=== PATIENT | male | born 1970 | race Hispanic/Latino ===

== ENCOUNTER 2018-10-31 13:37 | Outpatient (CLI) | payer OTHER ==
--- NOTE | 2018-10-31 16:23 | RAD ---
RADIOGRAPH THORACIC SPINE THREE VIEWS: 10/31/2018 HISTORY: A 48-year-old male with M54.6 and M54.5. Low back pain and pain in the thoracic spine. COMPARISON: None available. FINDINGS: There are bilateral pedicle screws with vertical interlocking rods, from the mid to lower thoracic sp ine, at what is probably T12, T11, T10, T9, and T8. On one of the two lateral views, there is a fátima re, approximately 75% gibbus angulation at T12-L1. The T12 vertebral body is poorly visualized, but it is probably compressed. The rest of the thoracic vertebral body heights are maintained. No scoli osis. IMPRESSION: 1. Severe gibbus at the thoracolumbar junction. 2. Pedicle screws at five consecutive levels in the lower thoracic spine. 3. Probable compression fracture deformity of the lowest level to have pedicle screws. This is inc ompletely and poorly imaged. POS: [facility]
== END 2018-10-31 13:38 | disposition home or self-care (01) ==
LOC: TBSIIMAG 13:37
PROVIDERS: ATTEND Neurological Surgery
DX: M54.5 Low back pain (principal); M54.6 Pain in thoracic spine; M43.8X5 Other specified deforming dorsopathies, thoracolumbar region
CPT/HCPCS: 72072

== ENCOUNTER 2018-12-07 07:48 | Day surgery (SDC) | payer OTHER ==
[2018-12-06 08:57] VITALS: BMI 25.7
--- NOTE | 2018-12-07 10:06 | RAD ---
Myelogram of cervical, thoracic, and lumbar spine CLINICAL HISTORY: Kyphosis, pain, history of posttraumatic paralysis PROCEDURE: Informed consent was obtained. [facility] imaging was performed. Patient was placed in a prone position and the skin of the low back was prepped and draped in a standard sterile fashion. Topical anesthesia was achieved with buffered 1% lidocaine. 22-gauge spinal needle was then advanced uneventf ully into the thecal sac from a posterior para midline approach at the left L4-5 level. 9 cc of radiopaque contrast was instilled under low pressure into the thecal sac, upon return of clear colorl ess CSF the needle hub. Imaging was stored for documentation. Needle was removed. Patient tolerated the procedure well, without complication evident. Patient was then transferred to CT to undergo subsequent CT myelogram imaging. Reference separate meek andrea(s) for additional details. FINDINGS: Intraoperative imaging reveals a needle overlying the lumbar spinal canal, with subsequent instillation of radiopaque contrast within the thecal sac. Fluoroscopy data: 0.2 minutes, 13.6 mcg/sq m IMPRESSION: Technically successful myelograms, as above.
[2018-12-07] MEDS ORDERED: Iopamidol-M 300 61% 15 ML VIAL ONE (10:39)
--- NOTE | 2018-12-07 11:20 | CT ---
CT LUMBAR MYELOGRAM WITH CONTRAST AND 3D VOLUME RENDERING CT LUMBAR SPINE WITH CONTRAST: CLINICAL HISTORY: Spinal cord injury, pain. FINDINGS: There is intrathecal contrast opacification throughout the lumbar spine from the L2 level through the sacral canal. At the site of posttraumatic deformity, L1-2, there is complete obliteration of the vertebral canal on the basis of retropulsed bone and surrounding paraspinous soft tissue density. The re is marked sclerosis of the posttraumatic L1 and L2 vertebral bodies. Mild superior, central height loss of L1 is present. There are multilevel degenerative appearing cysts of the L1 and L2 endp lates. There is mild retrolisthesis of L1 upon L2. Partially imaged hardware of the lower thoracic spine is demonstrated from multilevel posterior thoracic spinal fixation, incompletely evaluated on t he basis of this exam. There is obliteration of the thecal sac at the L1-2 level due to above described posttraumatic spinal deformity, retrolisthesis, and prominent epidural soft tissue density with interspersed calcific densities which may, at least in part be due to posttraumatic disc herniation, likely chronic given t he interspersed calcifications in the prominent adjacent bone deformity from remote trauma. Finding is difficult to reliably assess, otherwise on the basis of this exam. Note is made that there is lumbarization of S1. This places the iliolumbar ligaments appropriately at the anatomic L5 level. L1-2: Obliteration of the vertebral canal, related to posttraumatic deformity, as above. L2-3: There is mild effacement of the ventral thecal sac due to disc osteophyte. Mild left foraminal narrowing. No significant right foraminal narrowing. L3-4: Mild effacement of ventral thecal sac due to disc osteophyte complex. There is mild bilateral n eural foraminal narrowing. L4-5: Mild effacement of ventral thecal sac due to disc osteophyte. No high-grade foraminal stenosis. L5-S1: No significant compromise of central canal or neural foramina S1-2: No significant central canal or neural foraminal stenosis. IMPRESSION: Obliteration of the thecal sac at the posttraumatic T12-L1 level due to posttraumatic retropulsion, k yphosis, and prominent anterior epidural soft tissue with interspersed calcifications as discussed above. This does significantly impede cephalad migration of contrast beyond the confines of the lumba r spine thecal sac, despite delayed imaging of approximately 1 hour, with the patient in a persistent Trendelenburg position. Transcribed Date/Time: 12/07/2018 11:28 AM
--- NOTE | 2018-12-07 11:24 | CT ---
CT Cervical Spine W Con CT cervical spine myelogram with contrast 3-D volume rendering Indication: Spinal cord injury COMPARISON: None FINDINGS: Examination is performed status post myelogram. Please reference the separately dictated thoracic and lumbar spine segment reports for further details. Despite persistent, Trendelenburg positioning, with delayed imaging performed after one hour of posit ioning, due to patient's posttraumatic deformity and occlusion of the vertebral canal near the level of the thoracolumbar junction, there is inadequate contrast opacification of the cervical spine thecal sac for the purposes of myelographic evaluation. The osseous structures of the cervical spine reveal maintained alignment. There is no compression fracture. Craniocervical junction is intac t. There is mild multilevel, bilateral facet osteoarthritis and minimal multilevel endplate degenerative change, although the disc space heights of the cervical spine are relatively well preser blanca. Contents of the vertebral canal are not reliably assessed. IMPRESSION: 1. No high-grade osseous compromise of the cervical spine vertebral canal or neural foramina. 2. No evidence of fracture or malalignment. 3. Multilevel mild degenerative change. 4. Incomplete contrast opacification of thecal sac of cervical spine due to occlusion of the vertebr al canal near the thoracolumbar junction as discussed above. Transcribed Date/Time: 12/07/2018 11:30 AM
--- NOTE | 2018-12-07 11:36 | CT ---
CT THORACIC SPINE MYELOGRAM CT THORACIC SPINE WITH CONTRAST AND 3D REFORMATTED IMAGING: CLINICAL HISTORY: Spinal cord injury, pain FINDINGS: There is postoperative multilevel metallic fixation spanning the T9-L1 level. There is mild superior endplate compression deformity of T10 and T11. Marked sclerosis, and posttraumatic kyphotic deformity with endplate irregularities of L1 and L2 are present, incompletely visualized, described o n the concurrent lumbar spine CT myelogram report. There is bilateral pedicle screw placement of T9-L1, without evidence of perihardware lucency identif ied. The left T9 pedicle screw does reside external to the vertebral body, residing within the left paraspinous soft tissues. Scant radiopaque contrast occupies the thecal sac of the thoracic spine due to severe impedance of fl ow of intrathecal contrast beyond the site of a posttraumatic occlusion at the thoracolumbar junction, despite one hour of Trendelenburg positioning with subsequent delayed imaging. This does li joaquin assessment of the vertebral canal contents, as a result, and there is marked limitation to visibility at the level of the metallic fusion sites due to prominent streak artifact. There is no significant malalignment of the thoracic spine. Thoracic spine disc space heights are hesham ssly preserved. IMPRESSION: Multilevel postoperative fusion of the low thoracic spine as above. No obvious perihardware lucency t o indicate loosening. The left T9 pedicle screw does reside beyond the left lateral confines of the vertebral segment, located within the paraspinous soft tissues. Transcribed Date/Time: 12/07/2018 11:49 AM
== END 2018-12-07 11:15 | disposition home or self-care (01) ==
LOC: RAD 07:48 → EDSTATUS 08:00 → RAD 11:15
PROVIDERS: ATTEND Neurological Surgery
PROC: B01B1ZZ Fluoroscopy of Spinal Cord using Low Osmolar Contrast (ICD-10-PCS; principal; 2018-12-07)
DX: T14.8XXA Other injury of unspecified body region, initial encounter (principal); M40.205 Unspecified kyphosis, thoracolumbar region; I10 Essential (primary) hypertension; Z79.01 Long term (current) use of anticoagulants; Z79.899 Other long term (current) drug therapy; Z98.1 Arthrodesis status; W19.XXXA Unspecified fall, initial encounter
CPT/HCPCS: 62305; 72126; 72129; 72132; Q9967

== ENCOUNTER 2019-02-23 05:30 | Inpatient (IN) | payer OTHER ==
[2019-02-21 12:41] VITALS: BMI 26.4
--- NOTE | 2019-02-22 16:45 | CON ---
DATE OF CONSULTATION: HISTORY OF PRESENT ILLNESS: This is a 48-year-old male, who reports to our office for evaluation of low back pain. The patient fell off a roof in February of 2017, sustaining a skull fracture and subarachnoid hemorrhage, T10 fracture. The patient had emergency surgery with fusion from T8 through T12. Today, the patient states that he continues to have back pain from his surgery site down into his low back. He states that he feels popping, clicking like his bones are rubbing together. The patient has no feeling below the waist and is unable to move either leg. This has been the case since the injury. However, the patient states that he had some tingling up until about 6 months ago, possible progressive deformity as well as neurologic decrease. The patient was in physical therapy until approximately 6 months ago, and Physical Therapy thought that it was no longer helping. The patient states that he is getting weaker since he stopped therapy. The patient has seen Neurosurgery in [place] until he stopped seeing the patient's insurance. The patient uses catheters for bladder and bowel prep. At one time, Viagra was helping, however, now it does not. REVIEW OF SYSTEMS: A 10-point review of systems has been completed and is negative other than stated in the above HPI. PAST MEDICAL HISTORY: Serious injury falling from a roof, spinal cord injury. SURGICAL HISTORY: T10 fracture fusion, T8 through T12 fusion in 2016. FAMILY HISTORY: Father is alive. Mother is . Children are alive. SOCIAL HISTORY: The patient is a nonsmoker. MEDICATIONS: None. ALLERGIES: NO KNOWN DRUG ALLERGIES. PHYSICAL EXAMINATION: CONSTITUTIONAL: Well-appearing, well-nourished, alert. HEENT: Head is normocephalic. Extraocular movements are intact. Pupils are equal, round, and reactive to light. NECK: Normal. Soft, supple. No masses are noted. Range of motion is intact and nonpainful. NEUROLOGIC: Awake, alert, oriented x3. Memory, attention, fund of knowledge, and language are normal. Cranial nerves; cranial nerves are grossly intact. EXTREMITIES: Upper extremities; normal, does not disclose any focal motor weakness or deep tendon reflex asymmetry. Lower extremities; no lower extremity sensation. Lower extremities have no motor function. He is able to sit up with trunk stability. Gait and station, he is paraplegic. Motor exam, no antigravity motion of legs. Sensory exam, loss of sensation in legs as well as vibratory sensation in some patches, but not consistent. Reflex, pathologically brisk. IMAGING: Myelogram, complete block at T12-L1, T12 pars fracture below construct, kyphosis below construct, deformity and stenosis are severe. ASSESSMENT AND PLAN: Other fracture of T9-10 vertebra sequelae, unstable burst fracture at T9-T10, complete lesion from T7 through T10. Dr. Spence has offered surgery, would entail a long segment exposure, decompression of the soft tissue and stenosis, and extending the screws and rods to L2, possibly L3. The patient states that he understands the risks and is willing to proceed with surgery. Job ID: [id number]
[2019-02-23 06:23] LABS: #Basophils 0.1 thou/uL (0.0-0.2); #Eosinphils 0.3 thou/uL (0.0-0.7); #Lymphocytes 2.5 thou/uL (1.20-3.40); #Monocytes 0.6 thou/uL (0.11-0.59); #Neutrophils 6.2 thou/uL (1.40-6.50); %Basophils 0.7 % (0.0-1.0); %Eosinophils 3.6 % (0.0-10.0); %Lymphocytes 25.7 % (21.0-51.0); %Monocytes 5.7 % (0.0-10.0); %Neutrophils 64.3 % (42.0-75.0); Hemoglobin 15.1 g/dL (14.0-18.0); Mean Corpuscular HGB CONC 33.7 g/dL (32.0-36.0); Mean Corpuscular Hemoglobin 30.8 pg (27.0-31.0); Mean Corpuscular Volume 91.4 fL (78.0-98.0); Mean Platelet Volume 7.1 fL (7.4-10.4); Platelet Count 326 thou/uL (130-400); RBC Distribution Width 11.6 % (11.5-14.5); White Blood Cell (WBC) Count 9.6 thou/uL (4.8-10.8)
[2019-02-23] MEDS ORDERED: Sodium Chloride 0.9% 30 ML ONE (06:25)
[2019-02-23] MEDS ORDERED: Bacitracin Zinc Ointment 30 gm TUBE ONE (06:25)
[2019-02-23] MEDS ORDERED: Bupivacaine HCl 0.5%/Epinephrine 1:200,000/PF 30 ml Vial ONE (06:25)
[2019-02-23 06:43] LABS: INR-International Normal Ratio 1.1; PTT 31.5 SEC (22.9-36.1); Prothrombin Time 14.4 SEC (12.0-14.7)
[2019-02-23] MEDS ORDERED: Famotidine/PF 20 mg/2ml Vial ONE (07:01)
[2019-02-23] MEDS ORDERED: Albumin 5% 500 ML ONE (07:01)
[2019-02-23] MEDS ORDERED: Phenylephrine HCL 10 MG/ML VIAL ONE (07:02)
[2019-02-23] MEDS ORDERED: Fentanyl 100 MCG/2 ML VIAL ONE ×3 (07:11→14:33)
[2019-02-23] MEDS ORDERED: Thrombin 5000 UNITS/5 ML VIAL ONE (08:24)
[2019-02-23] MEDS ORDERED: Dexmedetomidine 200 MCG/2 ML VIAL ONE (09:19)
[2019-02-23] MEDS ORDERED: Rocuronium Bromide 50 MG/5 ML VIAL ONE (10:48)
[2019-02-23] MEDS ORDERED: Meperidine HCl/PF 25 MG/ML VIAL SLOW IVP PRN (13:32)
[2019-02-23] MEDS ORDERED: Promethazine HCl 25 MG/ML VIAL IM PRN (13:32)
[2019-02-23] MEDS ORDERED: HYDROmorphone 2 MG/ML VIAL SLOW IVP PRN (13:32)
[2019-02-23] MEDS ORDERED: Promethazine HCl 25 MG/ML VIAL SLOW IVP PRN (13:32)
[2019-02-23 13:40] LABS: Hemoglobin 11.5 g/dL (14.0-18.0)
[2019-02-23] MEDS ORDERED: diphenhydrAMINE 25 MG CAP PO PRN (14:06)
[2019-02-23] MEDS ORDERED: Promethazine 25 MG TAB PO PRN (14:06)
[2019-02-23] MEDS ORDERED: Mag-Al 1200 mg/1200 mg/30 ML UDCUP PO PRN (14:06)
[2019-02-23] MEDS ORDERED: Acetaminophen/Codeine 30-300mg Tablet PO PRN (14:06)
[2019-02-23] MEDS ORDERED: Morphine 4 MG/ML VIAL SLOW IVP PRN (14:06)
[2019-02-23] MEDS ORDERED: diphenhydrAMINE 50 MG/ML VIAL IVP PRN (14:06)
[2019-02-23] MEDS ORDERED: traMADol HCl 50 MG TAB PO PRN (14:06)
[2019-02-23] MEDS ORDERED: Acetaminophen 325 MG TAB PO PRN (14:06)
[2019-02-23] MEDS ORDERED: ACETAMINOPHEN WITH CODEINE PO PRN (14:10)
--- NOTE | 2019-02-23 14:46 | OP ---
DATE OF PROCEDURE: 02/23/2019 SMOKE ROOM OPERATOR: Malini Woodward PA-C. PREOPERATIVE INDICATION: Prevent neurological deterioration and treat spinal instability. 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 PROCEDURES PERFORMED: Reopening of thoracic incision, exposure of spine, inspection of posterolateral arthrodesis from T8-T12, removal of segmental spine instrumentation T8-T12, open reduction and internal fixation of T12 fracture with kyphotic deformity, pedicle screw instrumentation L1-L3, instrumented arthrodesis T8-L3, local morselized autograft, morselized allograft, laminectomy T11-L2, and operating microscope. PREOPERATIVE MEDICATION: Ancef 2 g IV. DRAIN NUMBER: 1. DRAIN TYPE: 10-Afghan Kaushik. DESCRIPTION OF PROCEDURE: The patient was brought to the operating room. General endotracheal anesthesia was induced. The patient was carefully positioned prone on the Prabhjot frame with appropriate padding for the chest and hips. There is still an acute kyphotic angle at T12-L1, but it was improved from the preoperative upright x-ray. The thoracolumbar skin was sterilely prepped and draped. We opened the previous incision and extended inferiorly. We carried our dissection down to the spinous processes from T12-L3 and to the cross numbers of the previous spine instrumentation as well as the spinous process of T8. We reflected scar tissue off the previous surgical site, and from T12-L3, we reflected paraspinal muscles off the spinous process and lamina from the inferior portion of T12 down to L3. Self-retaining retractors were placed and a lateral fluoro radiograph was used to confirm the levels upon which we were operating. We began our case by removing the caps over the rods from T8-T12. The rods were removed. We inspected the fusion mass from T8-T12. This was found to be relatively solid from T8-T10. There was some discontinuity from T10-T12. There was not a significant amount of motion from one segment to the other of each diffuse segment. We then turned our attention to decompression. With an Adson rongeur, we removed the remainder of the spinous process of T12 and L1. We thinned the lamina there and used Kerrison rongeurs to widened our laminectomy. The operative microscope was brought into the field for decompression due to the amount of scar tissue in the area. Under microscopic magnification using microsurgical techniques, we carefully loosened attachment of the dura to the lateral confines of the spinal canal with curettes. We decompressed from T11 all the way through the bottom of L1 and the top of L2. At the site of the T12 pars fractures, the dura was stretched over the kyphosis and the foramina were full of dense scar tissue around the T12 nerve roots. The remainder of the decompression was secured and these nerve roots were identified as best they could be. There was no CSF leak during our decompression. We turned our attention to pedicle screw placement. We removed the operative microscope. Using bony anatomic landmarks, palpation of the medial portion of the pedicles, and a lateral fluoro radiograph as our guide, we chose entry points for pedicle screws at L1, L2, and L3. We drilled out our entry points. We used a bone awl to advance trajectories into these vertebral bodies through the pedicles. We then tapped each trajectory with a threaded tap. We placed 6.5 x 55 mm screws at L1, L2, and L3 bilaterally with the exception of 50 mm screw on the right at L1. We then checked our instrumentation with a 360-degree image set generated with our isocentric C-arm. This confirmed adequate positioning of our pedicle screw instrumentation. We then turned our attention to reduction of the kyphotic deformity. 5.5 mm rods were brought into the field. They were cut to the appropriate length and bent so that they would help reduce the kyphotic deformity and engage the caps of the T8-T12 screws as well as the new L1-L3 screws. We used a lynn reducing mechanism to reduce the deformity and we tightened caps over the rods. As we placed and tightened each cap, the kyphosis was reduced farther. Finally, as we tightened down our last caps, we took a lateral fluoro radiograph to confirm that we had reduced the kyphotic deformity significantly. The dura at our site of decompression was more laxed as well. Using a torque/counter-torque mechanism, we ensured adequate tightness of all our caps. We turned our attention to arthrodesis. We irrigated copiously with bacitracin irrigation. We then decorticated the fusion mass in transverse processes from T8-T12 and then we decorticated the lateral aspect of the lamina and transverse processes of L1, L2, and L3. Over the length of the decorticated bone, we left demineralized bone matrix and morselized autograft as our posterior lateral fusion substrate. The autograft was obtained during our laminectomy and all the bone we took out was cleaned of soft tissue, morcellized, and added into demineralized bone matrix as our fusion substrate. We then tunneled the drain inferiorly through a separate stab incision. We treated the wound with vancomycin powder. We closed in anatomical layers and we applied a sterile dressing. This was a clean case, no contamination. Job ID: [id number]
[2019-02-23] MEDS ORDERED: Ondansetron PF 4 MG/2 ML Vial ONE (15:12)
[2019-02-23] MEDS ORDERED: Rocuronium Bromide 10 MG/ML (10ML VIAL) ONE (15:12)
[2019-02-23] MEDS ORDERED: Dexamethasone 20 MG/5 ML VIAL ONE (15:12)
[2019-02-23] MEDS ORDERED: Ketorolac Tromethamine 30 MG/ML VIAL ONE (15:12)
[2019-02-23] MEDS ORDERED: ePHEDrine 50 MG/ML VIAL ONE (15:12)
[2019-02-23] MEDS ORDERED: PROPOFOL 200 MG/20 ML VIAL ONE (15:12)
[2019-02-23] MEDS ORDERED: Lidocaine 1% PF 5 ML VIAL ONE (15:12)
[2019-02-23] MEDS ORDERED: Glycopyrrolate 0.2 MG/ML 5 ML SYRINGE ONE (15:12)
[2019-02-23] MEDS: Labetalol 100 MG TAB PO SCH (20:02)
[2019-02-23] MEDS: Gabapentin 300 MG CAP PO SCH (20:02)
[2019-02-23] MEDS: Acetaminophen/Codeine 30-300mg Tablet PO PRN (20:03)
[2019-02-23] MEDS: Trospium 20 MG TAB PO SCH (21:06)
[2019-02-24] MEDS: CEFAZOLIN 2 GM in Premix Bag 1 BAG IVPB SCH ×5 (00:02→22:46)
[2019-02-24 04:55] LABS: Hemoglobin 10.3 g/dL (14.0-18.0)
[2019-02-24] MEDS: Sodium Chloride 0.9% 1,000 ML IV SCH ×2 (05:06→17:05)
[2019-02-24] MEDS: Labetalol 100 MG TAB PO SCH ×2 (09:56→20:20)
[2019-02-24] MEDS: Gabapentin 300 MG CAP PO SCH ×4 (09:57→20:20)
[2019-02-24] MEDS: Senokot 8.6 MG TAB PO SCH (09:58)
[2019-02-24] MEDS: Citalopram 20 MG TAB PO SCH (09:58)
[2019-02-24] MEDS: Trospium 20 MG TAB PO SCH ×2 (10:01→20:20)
--- NOTE | 2019-02-24 10:21 | PRG ---
DATE OF SERVICE: 02/24/2019 SUBJECTIVE: Mr. Madison is postop day #1 following revision, thoracolumbar fusion construct with Dr. Spence. He has minimal pain this morning, but still has rather significant reduced motor function of bilateral lower extremities. He does complain of urinary retention. We will likely need to consult Urology today and likely need to place a Garcia. Otherwise, we will continue to work with therapy . Job ID: [id number]
[2019-02-24] MEDS ORDERED: Diclofenac 1% 100 GM GEL TP PRN (11:31)
[2019-02-24] MEDS: Rivaroxaban 10 MG TAB PO SCH (15:56)
[2019-02-24] MEDS: tiZANidine HCl 4 MG TAB PO PRN (16:00)
[2019-02-24] MEDS: Acetaminophen/Codeine 30-300mg Tablet PO PRN ×2 (16:00→22:05)
[2019-02-24] MEDS: Bisacodyl 10 MG SUPP PR PRN (17:09)
--- NOTE | 2019-02-24 22:20 | PRG ---
DATE OF SERVICE: SUBJECTIVE: I have reviewed the note as dictated by Kelvin Mora and agree with his assessment. Mr. Madison is now one day status post revision with extension of the thoracolumbar fusion. He has the anticipated postsurgical pain. He continues to have neurologic dysfunction secondary to myelopathy. The plan will be ongoing PT, OT, and consideration of inpatient rehab placement. Job ID: [id number] [facility]
[2019-02-25] MEDS: Acetaminophen/Codeine 30-300mg Tablet PO PRN ×2 (02:47→08:44)
[2019-02-25] MEDS: tiZANidine HCl 4 MG TAB PO PRN (02:47)
[2019-02-25] MEDS: CEFAZOLIN 2 GM in Premix Bag 1 BAG IVPB SCH ×3 (06:21→23:08)
[2019-02-25] MEDS: Sodium Chloride 0.9% 1,000 ML IV SCH ×2 (06:21→20:09)
[2019-02-25] MEDS: Trospium 20 MG TAB PO SCH ×2 (08:43→20:10)
[2019-02-25] MEDS: Gabapentin 300 MG CAP PO SCH ×3 (08:43→20:09)
[2019-02-25] MEDS: Docusate 100 MG CAP PO SCH (08:43)
[2019-02-25] MEDS: Labetalol 100 MG TAB PO SCH ×2 (08:43→20:09)
[2019-02-25] MEDS: Senokot 8.6 MG TAB PO SCH (08:43)
[2019-02-25] MEDS: Citalopram 20 MG TAB PO SCH (08:43)
[2019-02-25] MEDS ORDERED: Oxybutynin ER 5 MG TAB PO SCH (09:00)
--- NOTE | 2019-02-25 10:56 | PRG ---
DATE OF SERVICE: 02/25/2019 Mr. Madison is resting comfortably in his bed. He reports improvement in his pain overall as compared to yesterday. At this point, we are awaiting on final disposition planning, at which time he can be discharged once that has been determined. Job ID: [id number]
--- NOTE | 2019-02-25 11:48 | PRG ---
DATE OF SERVICE: 02/25/2019 SUBJECTIVE: Mr. Madison is postop day 2 following thoracic revision decompression and fusion with Dr. Spence. Current pain level, he has minimal and continues to struggle with bowel movements. Rectal digital stimulation has only helped minimally. He states that he has a chair at home that he uses that helps him with this and his son is bringing that up this morning for use. He also has been self catheterizing, which has resolved his bladder discomforts from yesterday. We will need aggressive PT and OT and ultimately rehab placement, which we will work on at the beginning of the week. Job ID: [id number]
[2019-02-25] MEDS: Rivaroxaban 10 MG TAB PO SCH (17:21)
[2019-02-25] MEDS: traMADol HCl 50 MG TAB PO PRN (20:13)
[2019-02-26] MEDS: traMADol HCl 50 MG TAB PO PRN ×2 (03:30→09:31)
[2019-02-26] MEDS: CEFAZOLIN 2 GM in Premix Bag 1 BAG IVPB SCH ×2 (06:01→16:04)
--- NOTE | 2019-02-26 07:05 | PRG ---
DATE OF SERVICE: 02/26/2019 Mr. Madison is 3 days out from fixation of his distal junctional kyphosis after previous fusion. Mr. Madison tells me his 1st operation was complicated by infection; therefore we are going to used a prolonged course of antibiotics. In fact, we may have Infectious Disease doctors recommend a treatment scheme and we are going to try to obtain records from his 1st surgery to see what organism was treated. If his rods were colonized, then we will have to treat him appropriately at this time as well. Thankfully, Mr. Madison notices some burning in his feet that was not there before. This may be a sign that the nerves are waking and slowly recovering. We may have to add gabapentin. Mr. Madison wonders about his bowel care. He was told not to twist his body to perform his own bowel care and that is in fact my recommendation. He can with assistance raise from a supine position to sitting on the bed. The brace can be applied before he transfers to his chair. Inpatient rehabilitation will be beneficial for him. We will need to sort out the antibiotic issue prior to discharge. Job ID: [id number] MTDD
[2019-02-26] MEDS: Gabapentin 300 MG CAP PO SCH ×3 (08:28→20:59)
[2019-02-26] MEDS: Labetalol 100 MG TAB PO SCH ×2 (08:30→20:59)
[2019-02-26] MEDS: Senokot 8.6 MG TAB PO SCH (08:32)
[2019-02-26] MEDS: Citalopram 20 MG TAB PO SCH (08:32)
[2019-02-26] MEDS: Docusate 100 MG CAP PO SCH (09:32)
[2019-02-26] MEDS: Trospium 20 MG TAB PO SCH ×2 (09:33→20:59)
--- NOTE | 2019-02-26 13:23 | CON ---
DATE OF CONSULTATION: 02/26/2019 REASON FOR CONSULTATION: A fracture of the lumbosacral spine area with worsening deformity and neurological changes. HISTORY OF PRESENT ILLNESS: A 48-year-old, who sustained a fall from a roof of a building in 2017. 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 After that, he was transferred to [facility] and reportedly developed an infection, which was treated with IV and oral antimicrobial therapy for protracted period of time with eventual healing. He has remained full paraplegia since then, has no sensation, although before six months ago, he did have some perception of tingling. Over the past few months, he has noticed progressive deformity when he sits up and he was not making progress in the physical therapy and they decided to refer him to a neurosurgeon. The previous neurosurgeon did not accept any longer his insurance and he was referred here. Dr. Spence has scheduled decompression of the exposed segment and extending the screws and rods to L2 and possibly L3. Currently, he denies any headaches. No visual symptoms, sore throat, odynophagia, or dysphagia. No cough or sputum production. No dyspnea. No abdominal pain. He does not have sensation below the umbilicus. Uses in and out catheterization for emptying his bladder, usually 4 to 6 times a day. Reportedly gets anywhere from 600 to 800 mL each time. Uses a bowel program with suppositories. PAST MEDICAL HISTORY: Fall from the roof during work in 2017 with full paraplegia or complete paraplegia and infection post fusion of the lower T-spine area, which was treated with protracted IV and oral antimicrobial therapy. PAST SURGICAL HISTORY: T8 through T12 fusion. FAMILY HISTORY: Noncontributory. SOCIAL HISTORY: He is disabled at this time. Lives with family in [place] reportedly. Never smoker. No alcoholic beverage use of significance. ALLERGIES: NONE. CURRENT MEDICATIONS: 1. Tylenol. 2. Cefazolin. 3. Diphenhydramine. 4. Tizanidine. 5. Tramadol. PHYSICAL EXAMINATION: VITAL SIGNS: Temperature has been normal. LYMPHATICS: No lymphadenopathy. SKIN: Normal. The patient does not have a Garcia catheter at this time. The patient has a peripheral IV access only. HEENT: Ocular movements conjugate. Conjunctivae normal. Nasal passages are patent. Oral cavity with quite a few teeth in place with some decay and gum disease. NECK: Supple. No jugular venous distention. LUNGS: Symmetric clear breath sounds. HEART: S1 and S2. Regular rate. No S3 or S4. ABDOMEN: Soft. No bladder distention. Complete paraplegia. He has no sensation to touch or pinprick below the waist. His cognitive function appears to be intact. LABORATORY DATA: White cell count 9.6, hemoglobin 15, and platelets 326 with normal differential. We do not have a chemistry at this time. INR was 1.1. Operative notes have been reviewed. The procedure was an arthrodesis from T8-T11, removal of segmental spine instrumentation, ORIF T12 fracture with kyphotic deformity, pedicle screw instrumentation, and instrumented arthrodesis T8 through L3 with autograft. Cultures are pending from the specimen or at least though was the intention when the area was accessed originally. No imaging studies are available at this time. ASSESSMENT: Lower thoracic spine fracture with complete paraplegia status post fusion in 2017, postop infection following fusion surgery and now with development of kyphosis associated with collapse of I believe the T12 vertebra. DISCUSSION: The patient had the procedure and we will see if the samples were submitted for culture from the site. We will also contact [facility] and see if we can get culture results and then make a decision as to this need for active treatment or just suppressive antimicrobial therapy or no intervention whatsoever in terms of antimicrobial treatment at this point in time. Job ID: [id number]
[2019-02-26] MEDS: Sodium Chloride 0.9% 1,000 ML IV SCH ×2 (13:24→21:01)
[2019-02-26] MEDS: Bisacodyl 10 MG SUPP PR PRN (13:34)
[2019-02-26] MEDS: Rivaroxaban 10 MG TAB PO SCH (16:53)
--- NOTE | 2019-02-27 07:04 | PRG ---
DATE OF SERVICE: 02/27/2019 I saw Abram Madison in his hospital room this morning. 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 Mr. Madison is in good spirits. Had some muscle spasm in the right flank when trying to catheterize himself yesterday and his family noted some drainage from the wound. Otherwise, he feels well. Mr. Madison tells me Dr. Jeanne Levin cared for him at [facility] in rehab, and he would love to return there as he needs more inpatient rehabilitation. We will make the call today to see if that is a possibility. He also told me Dr. Levin would know about the infectious process he had following his first surgery. If there is a culture available, maybe she can relay that information so we can keep him on at least some postoperative antibiotics to prevent that from happening again. Job ID: [id number]
[2019-02-27] MEDS: Sodium Chloride 0.9% 1,000 ML IV SCH (08:43)
[2019-02-27] MEDS: CEFAZOLIN 2 GM in Premix Bag 1 BAG IVPB SCH ×2 (09:12→17:02)
[2019-02-27] MEDS: Docusate 100 MG CAP PO SCH (09:15)
[2019-02-27] MEDS: Trospium 20 MG TAB PO SCH ×2 (09:16→21:49)
[2019-02-27] MEDS: Senokot 8.6 MG TAB PO SCH (09:16)
[2019-02-27] MEDS: Labetalol 100 MG TAB PO SCH ×2 (09:16→21:48)
[2019-02-27] MEDS: Gabapentin 300 MG CAP PO SCH ×3 (09:16→21:49)
[2019-02-27] MEDS: Citalopram 20 MG TAB PO SCH (09:17)
[2019-02-27] MEDS: Acetaminophen/Codeine 30-300mg Tablet PO PRN ×2 (09:19→15:32)
--- NOTE | 2019-02-27 09:40 | ULT ---
ULTRASOUND DOPPLER DUPLEX VENOUS BILATERAL LOWER EXTREMITIES: DATE: 02/27/2019 HISTORY: 48-year-old male with bilateral lower extremity edema. TECHNIQUE: Grayscale, color-flow, and spectral analysis, of major veins of bilateral lower extremities. FINDINGS: There is demonstration of blood flow with normal compressibility, of the bilateral common femoral, pr ofunda femoral, greater saphenous, femoral, popliteal, and posterior tibial, veins. IMPRESSION: Negative. No deep venous thrombosis of bilateral lower extremities.
[2019-02-27] MEDS: Rivaroxaban 10 MG TAB PO SCH (17:03)
[2019-02-27] MEDS: Bisacodyl 10 MG SUPP PR PRN (17:41)
[2019-02-27] MEDS: traMADol HCl 50 MG TAB PO PRN (21:54)
[2019-02-28] MEDS: CEFAZOLIN 2 GM in Premix Bag 1 BAG IVPB SCH (01:21)
--- NOTE | 2019-02-28 07:16 | PRG ---
DATE OF SERVICE: 02/28/2019 I saw Abram Madisno in his hospital room this morning. He has some left flank muscle spasm. Otherwise, he feels well. He does not have any complaints from this morning. Incision is healing nicely. There is still complete spinal cord injury. I spoke with the physician at [facility] yesterday. The postoperative infection that Mr. Madison remembers was either postop UTI treated in the rehab facility or small dehiscence of the upper portion of his incision treated with superficial agents only, but no IV antibiotics. There is no record in their notes of any deep wound infection. He did not require any revision surgery last time and he did not require a PICC line or prolonged IV antibiotic therapy. With this information, I think we can stop Mr. Madison antibiotics. The next step in his care would be to transition to inpatient rehabilitation if he is a candidate for it. He greatly prefers returning to [facility] because it is closer to home and his and they know the system. He has been a patient there already. This would be a good continuity of care for the patient and a possible transfer could be arranged there. Job ID: [id number]
[2019-02-28] MEDS: Labetalol 100 MG TAB PO SCH ×2 (10:02→20:45)
[2019-02-28] MEDS: Docusate 100 MG CAP PO SCH (10:02)
[2019-02-28] MEDS: Trospium 20 MG TAB PO SCH ×2 (10:02→20:46)
[2019-02-28] MEDS: Senokot 8.6 MG TAB PO SCH (10:04)
[2019-02-28] MEDS: Gabapentin 300 MG CAP PO SCH ×3 (10:06→20:47)
[2019-02-28] MEDS: Citalopram 20 MG TAB PO SCH (10:06)
[2019-02-28] MEDS: Sodium Chloride 0.9% 1,000 ML IV SCH ×2 (17:30→17:37)
[2019-02-28] MEDS: Rivaroxaban 10 MG TAB PO SCH (17:33)
[2019-03-01] MEDS: Sodium Chloride 0.9% 1,000 ML IV SCH ×2 (03:41→17:39)
[2019-03-01] MEDS: tiZANidine HCl 4 MG TAB PO PRN (05:22)
[2019-03-01] MEDS: Acetaminophen/Codeine 30-300mg Tablet PO PRN (05:22)
[2019-03-01 07:05] LABS: #Eosinphils 0.3 thou/uL (0.0-0.7); #Lymphocytes 1.7 thou/uL (1.20-3.40); #Monocytes 0.5 thou/uL (0.11-0.59); #Neutrophils 5.7 thou/uL (1.40-6.50); %Basophils 0.2 % (0.0-1.0); %Eosinophils 4.1 % (0.0-10.0); %Lymphocytes 20.3 % (21.0-51.0); %Monocytes 6.6 % (0.0-10.0); %Neutrophils 68.8 % (42.0-75.0); Hemoglobin 9.6 g/dL (14.0-18.0); Mean Corpuscular HGB CONC 33.5 g/dL (32.0-36.0); Mean Corpuscular Hemoglobin 30.9 pg (27.0-31.0); Mean Corpuscular Volume 92.3 fL (78.0-98.0); Mean Platelet Volume 6.5 fL (7.4-10.4); Platelet Count 312 thou/uL (130-400); RBC Distribution Width 11.7 % (11.5-14.5); White Blood Cell (WBC) Count 8.3 thou/uL (4.8-10.8)
[2019-03-01 07:25] LABS: Anion Gap 8 mmol/L (10-20); BUN (Urea Nitrogen) 6 mg/dL (8.9-20.6); Calc. Creatinine Clearance 199 mL/min (70-130); Calcium 8.7 mg/dL (7.8-10.44); Carbon Dioxide 30 mmol/L (22-29); Chloride 101 mmol/L (98-107); Estimated GFR-MDRD Greater than 90; Glucose 157 mg/dL (70-105); Potassium 3.9 mmol/L (3.5-5.1); Sodium 135 mmol/L (136-145)
--- NOTE | 2019-03-01 07:30 | PRG ---
DATE OF SERVICE: 03/01/2019 I saw Abram Madison in his hospital room this morning. He is unaware of any placement. Arrangements could have been made for him. Vital signs overnight do not reveal any fever. Blood pressures have been good. There is no change in neurological function. Mr. Madison feels that he needs his bowel regimen done today. A brace can be applied when he is sitting. He can be transferred to his specialty commode in the bathroom for bowel evacuation. Once arrangements are made for post hospital care, he can be transferred. Job ID: [id number]
[2019-03-01] MEDS: Gabapentin 300 MG CAP PO SCH ×3 (09:00→21:33)
[2019-03-01] MEDS: Citalopram 20 MG TAB PO SCH (09:00)
[2019-03-01] MEDS: Senokot 8.6 MG TAB PO SCH (09:00)
[2019-03-01] MEDS: Labetalol 100 MG TAB PO SCH ×2 (09:01→21:33)
[2019-03-01] MEDS: Docusate 100 MG CAP PO SCH (09:02)
[2019-03-01] MEDS: Trospium 20 MG TAB PO SCH ×2 (09:08→21:33)
[2019-03-01] MEDS: Rivaroxaban 10 MG TAB PO SCH (16:42)
[2019-03-01] MEDS: traMADol HCl 50 MG TAB PO PRN (19:36)
[2019-03-01] MEDS: Milk Of Magnesia 30 ML UDCUP PO PRN (19:37)
[2019-03-02] MEDS: tiZANidine HCl 4 MG TAB PO PRN ×2 (06:38→21:22)
[2019-03-02] MEDS: Sodium Chloride 0.9% 1,000 ML IV SCH ×2 (06:38→19:53)
--- NOTE | 2019-03-02 07:54 | PRG ---
DATE OF SERVICE: 03/02/2019 I saw Abram Madison in his hospital room this morning. He is resting comfortably and asked me about return of erectile function and bladder control. Because of his distal junctional kyphosis was stretching nerves and spinal cord for months prior to surgery. I think, there is a chance, but no guarantee of return of neurological function. I told the patient to wait for weeks to months to see if things improve. In the meantime, Mr. Madison might benefit from inpatient rehabilitation. He has been referred here, but approval from his insurance has not been obtained yet. Once obtained, we can transfer as early as today. Job ID: [id number]
[2019-03-02] MEDS: Senokot 8.6 MG TAB PO SCH (09:59)
[2019-03-02] MEDS: Docusate 100 MG CAP PO SCH (09:59)
[2019-03-02] MEDS: Gabapentin 300 MG CAP PO SCH ×3 (09:59→21:22)
[2019-03-02] MEDS: Citalopram 20 MG TAB PO SCH (10:00)
[2019-03-02] MEDS: Trospium 20 MG TAB PO SCH ×2 (10:00→21:22)
[2019-03-02] MEDS: Labetalol 100 MG TAB PO SCH ×2 (10:00→21:22)
--- NOTE | 2019-03-02 14:31 | PRG ---
DATE OF SERVICE: 03/02/2019 SUBJECTIVE: The patient has not had much success in terms of his bowel output. He denies any shortness of breath. OBJECTIVE: VITAL SIGNS: His temperature has been normal, blood pressure 102/67, pulse 82, respirations 16, and O2 saturation 96%. GENERAL: The surgical site appears okay. LUNGS: Clear. CARDIAC: S1 and S2, regular rate. ABDOMEN: Soft. NEUROLOGIC: Complete paraplegia. Self-intermittent catheterization. LABORATORY DATA: White cell count 8.3, hemoglobin 9.6, and platelets 312. Creatinine 0.56. No microbiology data. ASSESSMENT AND PLAN: The data's transferred from [facility] included only urinary cultures and no cultures related to his reported lumbosacral spine infection. We will have to contact the microbiology lab directly and talk to them about this before we make any decisions as to the appropriateness of suppressive antimicrobial therapy after this intervention. Job ID: [id number]
[2019-03-02] MEDS: Rivaroxaban 10 MG TAB PO SCH (17:33)
[2019-03-03] MEDS: Gabapentin 300 MG CAP PO SCH ×3 (08:36→19:43)
[2019-03-03] MEDS: Labetalol 100 MG TAB PO SCH ×2 (08:37→19:43)
[2019-03-03] MEDS: Senokot 8.6 MG TAB PO SCH (08:38)
[2019-03-03] MEDS: Citalopram 20 MG TAB PO SCH (08:38)
[2019-03-03] MEDS: Docusate 100 MG CAP PO SCH (08:38)
[2019-03-03] MEDS: Trospium 20 MG TAB PO SCH ×2 (08:39→19:45)
--- NOTE | 2019-03-03 10:33 | PRG ---
DATE OF SERVICE: 03/03/2019 The patient is status post T8 through L3 fusion by Dr. Spence. He has since been transitioned to the Med/Surg floor, where his pain has been well controlled with medications. He has not had any real return of his bladder function and is doing intermittent catheterization. He is tolerating a regular diet, and has no pain control issues. He has had no incisional issues. He is awaiting rehab and we feel that he is ready for discharge to rehab at any point in time. Job ID: [id number]
--- NOTE | 2019-03-03 11:02 | CON ---
DATE OF CONSULTATION: 03/03/2019 The patient was seen and examined. I agree with Lillie Reyes's evaluation, 03/03/2019. The patient is doing quite well and has no specific complaints. He is gradually mobilizing and his pain control seems adequate. We are waiting on rehab. Job ID: [id number]
[2019-03-03] MEDS: traMADol HCl 50 MG TAB PO PRN ×2 (14:14→20:54)
[2019-03-03] MEDS: Sodium Chloride 0.9% 1,000 ML IV SCH ×2 (17:33→19:46)
[2019-03-03] MEDS: Rivaroxaban 10 MG TAB PO SCH (18:12)
[2019-03-03] MEDS: Bisacodyl 10 MG SUPP PR PRN (22:27)
[2019-03-04] MEDS ORDERED: Fleet Enema 133 ML BOT PR SCH (00:30)
[2019-03-04] MEDS: Acetaminophen/Codeine 30-300mg Tablet PO PRN (01:55)
[2019-03-04] MEDS: Milk Of Magnesia 30 ML UDCUP PO PRN (01:55)
[2019-03-04] MEDS: Promethazine HCl 25 MG/ML VIAL IM PRN ×2 (04:30→11:27)
[2019-03-04] MEDS: Senokot 8.6 MG TAB PO SCH ×2 (08:36→18:23)
[2019-03-04] MEDS: Gabapentin 300 MG CAP PO SCH ×3 (08:36→20:17)
[2019-03-04] MEDS: Docusate 100 MG CAP PO SCH ×2 (08:36→18:18)
[2019-03-04] MEDS: Citalopram 20 MG TAB PO SCH ×2 (08:36→18:18)
[2019-03-04] MEDS: Trospium 20 MG TAB PO SCH ×3 (08:37→20:17)
[2019-03-04] MEDS: Labetalol 100 MG TAB PO SCH ×3 (08:37→20:17)
[2019-03-04] MEDS: Morphine 2 MG/ML SYRINGE SLOW IVP PRN ×2 (08:53→15:42)
[2019-03-04] MEDS: Bisacodyl 10 MG SUPP PR PRN (08:57)
[2019-03-04] MEDS: Ondansetron PF 4 MG/2 ML Vial IVP PRN ×2 (08:57→14:27)
--- NOTE | 2019-03-04 09:44 | PRG ---
DATE OF SERVICE: 03/04/2019 SUBJECTIVE: Overnight, Mr. Madison developed some increased abdominal pain. He has been having some constipation to his course and we have tried Dulcolax, Colace, Fleet enema, and digital stimulation. This is only producing small bowel movements; therefore, I did a KUB this morning, which showed a large amount of gas and stool within the colon. The patient also has developed a few episodes of nausea and vomiting earlier this morning. OBJECTIVE: On exam this morning, the patient is slightly uncomfortable. His abdomen is distended and firm. He is noted to have bowel sounds throughout. He has free active range of motion of the upper extremities and no significant points of back pain. No incisional issues. I have discussed new abdominal findings with the hospitalist, Dr. Coats and we reviewed the KUB together. He will also see the patient to assist with management of his progressive constipation. The patient may require NG tube for decompression. Job ID: [id number]
[2019-03-04] MEDS ORDERED: Magnesium Citrate 300 ML BOT PO SCH (10:30)
[2019-03-04] MEDS: Bisacodyl 10 MG SUPP PR SCH ×2 (10:34→18:16)
--- NOTE | 2019-03-04 12:08 | CON ---
DATE OF CONSULTATION: 03/04/2019 PRIMARY SERVICE ATTENDING: Dr. Spence with Neurosurgical Service. REASON FOR CONSULTATION: Abdominal pain and distention. HISTORY OF PRESENT ILLNESS: This is a 49-year-old male, who initially presented to [facility], undergoing a thoracic spine open reduction and internal fixation of T12 chronic fracture as well as instrumentation and fusion from T8 to L3. The patient was managed postoperatively and noted with increasing abdominal distention with minimal bowel movements in the last 24 hours. The patient complains of abdominal pain, cramping with nausea and vomiting. The patient states his last oral intake was approximately 24 hours previous. The patient states he has intermittent constipation due to paraplegia after sustaining a fall, injury with T10 fracture in 2017. The patient is wheelchair bound with neurogenic bladder. The patient did receive a Fleets Enema with digital rectal stimulation in addition to stool softeners without successful bowel movement. PAST MEDICAL HISTORY: 1. Status post fall from a roof in 2017 with T10 fracture and paraplegia. 2. Neurogenic bladder. 3. Nonambulatory status. 4. Postoperative T6 thoracic spine infection requiring IV and oral antimicrobial therapy. PAST SURGICAL HISTORY: 1. Status post T8 through T12 fusion. 2. Status post T8 through L3 revision and fusion. CURRENT HOME MEDICATIONS: 1. Tylenol No. 4 of 300/60 mg 1 tab p.o. q.4 to 6 hours p.r.n. pain. 2. Celexa 20 mg p.o. daily. 3. Docusate sodium 100 mg p.o. daily. 4. Gabapentin 600 mg p.o. t.i.d. 5. Labetalol 50 mg p.o. b.i.d. 6. Myrbetriq 50 mg p.o. daily. 7. Oxybutynin chloride extended release 15 mg p.o. daily. 8. Senna 3 tabs p.o. daily. 9. VESIcare 10 mg p.o. daily. 10. Zanaflex 4 mg p.o. t.i.d. p.r.n. ALLERGIES: NO KNOWN DRUG ALLERGIES. FAMILY HISTORY: No inheritable diseases per the patient's report. SOCIAL HISTORY: The patient is , accompanied by his family in the hospital. Originally living in [place], [place]. No alcohol, tobacco, or illicit drug use. Nonambulatory status due to paraplegia. REVIEW OF SYSTEMS: CONSTITUTIONAL: Negative for weight loss or gain, ability to conduct usual activities. SKIN: Negative for rash, itching. EYES: Negative for double vision, pain. ENT/MOUTH: Negative for nose bleeding, neck stiffness, pain, tenderness. CARDIOVASCULAR: Negative for palpitations, dyspnea on exertion, orthopnea. RESPIRATORY: Negative for shortness of breath, wheezing, cough, hemoptysis, fever or night sweats. GASTROINTESTINAL: Negative for poor appetite, abdominal pain, heartburn, nausea, vomiting, constipation, or diarrhea. GENITOURINARY: Negative for urgency, frequency, dysuria, nocturia. MUSCULOSKELETAL: Negative for pain, swelling. NEUROLOGIC/PSYCHIATRIC: Negative for anxiety, depression. ALLERGY/IMMUNOLOGIC: Negative for skin rash, bleeding tendency. Otherwise, negative except as stated per HPI. PHYSICAL EXAMINATION: VITAL SIGNS: Currently, blood pressure 138/90, pulse 116, respiratory rate 18, temperature 97.9 degrees Fahrenheit, and O2 saturation 97% on room air. GENERAL APPEARANCE: This is a 49-year-old male, alert and oriented x3, pleasant, in no acute distress. HEENT: Pupils are equal, round, and reactive to light and accommodation. Extraocular muscles are intact. No scleral icterus. No conjunctival injection. Nares are patent. OP is clear. NECK: Supple. No cervical adenopathy. No thyromegaly. No carotid bruits. No JVD appreciated. Cervical spine with full active and passive range of motion. No meningeal signs noted. CHEST: Lungs are clear to auscultation bilaterally. CARDIOVASCULAR: S1 and S2 with tachycardia. No murmur, rub, or gallop appreciated. ABDOMEN: Distended with tenderness to palpation diffusely. No rebound or guarding noted. Bowel sounds diminished in all quadrants. EXTREMITIES: Warm and dry with fair turgor. No clubbing, cyanosis, or asymmetric edema appreciated. Pulses palpable distally at the dorsalis pedis, posterior tibial, and popliteal arteries bilaterally. Capillary refill less than 2 seconds. NEUROLOGIC: Paraplegia of the lower extremities. Alert and oriented x3. Postsurgical changes noted of the thoracic and lumbar spine. PERTINENT LABORATORY AND X-RAY FINDINGS: Sodium 135, potassium 3.9, chloride 101, CO2 of 20, BUN 6, creatinine 0.56, glucose 157, and calcium 8.7. CBC showed a white blood cell count of 8.3, hemoglobin 9.6, hematocrit 28.6, and platelet count 312 with normal differential. KUB of the abdomen dated 03/04/2019, showed large amount of retained stool throughout the colon. Postsurgical changes noted from thoracic to lumbar spine. ASSESSMENT AND PLAN: 1. Postoperative ileus with constipation. The patient will initiate magnesium citrate 300 mL x1 now. Continue Senokot 3 tabs p.o. daily. Dulcolax suppositories 1 to 2 tabs q.8 hours extremity q.8 hours p.r.n. Continue serial abdominal exams. Limit narcotic pain medication. 2. Paraplegia, status post thoracic lumbar spinal fusion. Continue general supportive management. Limit pain medication due to postoperative ileus. PT and OT for mobilization. TLSO bracing when upright or sitting in a chair. 3. Neurogenic bladder. Continue self-catheterizations as clinically indicated. Oxybutynin extended release 15 mg daily. 4. Prophylaxis. SCDs while in bed. Protonix 40 mg p.o. daily. 5. Code status is full. Surrogate medical decision maker is the patient's spouse. Job ID: [id number]
--- NOTE | 2019-03-04 12:12 | RAD ---
2 VIEWS ABDOMEN: Date: 03/04/19 INDICATION: Abdominal pain. COMPARISON: None. FINDINGS: There is a prominent amount of stool within the colon with scattered gas. There is thoracolumbar inst rumentation seen involving the central aspect of the back. No acute osseous abnormality is evident. IMPRESSION: Prominent gaseous distention and fecal distention of the colon. POS: BH
[2019-03-04] MEDS: Polyethylene Glycol 3350 17 GM Packet PO SCH (18:23)
[2019-03-04] MEDS: Rivaroxaban 10 MG TAB PO SCH (18:24)
[2019-03-04] MEDS: Sodium Chloride 0.9% 1,000 ML IV SCH ×2 (18:35→20:17)
[2019-03-04] MEDS ORDERED: Promethazine HCl 25 MG in Sodium Chloride 0.9% 50 ML IVPB PRN (19:44)
[2019-03-05] MEDS: Bisacodyl 10 MG SUPP PR SCH ×3 (01:45→18:24)
[2019-03-05] MEDS: Sodium Chloride 0.9% 1,000 ML IV SCH ×3 (01:57→20:34)
--- NOTE | 2019-03-05 06:54 | PRG ---
DATE OF SERVICE: 03/05/2019 I saw Mr. Madison in his hospital room this morning. Over the weekend, he had some abdominal distention and discomfort from the ileus. Changes were made to his GI medication and he has had a bowel movement 4 times overnight. He is happier this morning and says the abdominal pain has eased off significantly. Mr. Madison still needs inpatient rehabilitation placement. He has not been out of bed much and into his wheelchair and rides around the halls. I do not find any new changes on his neurological examination. With his brace on, he should get out of bed and mobilize. We are awaiting placement and he can be transferred any time. Job ID: [id number]
--- NOTE | 2019-03-05 07:54 | ULT ---
Venous duplex sonogram bilateral lower extremity HISTORY: Bilateral leg pain and edema. FINDINGS: Each common femoral vein and greater saphenous junction were evaluated along with each femo ral, deep femoral, popliteal, and posterior tibial vein. There is good color and spectral Doppler flow, compression, and augmentation. IMPRESSION: No sonographic evidence of DVT within either lower extremity.
[2019-03-05] MEDS: Labetalol 100 MG TAB PO SCH ×2 (10:06→20:33)
[2019-03-05] MEDS: Senokot 8.6 MG TAB PO SCH (10:07)
[2019-03-05] MEDS: Gabapentin 300 MG CAP PO SCH ×3 (10:07→20:32)
[2019-03-05] MEDS: Citalopram 20 MG TAB PO SCH (10:08)
[2019-03-05] MEDS: Docusate 100 MG CAP PO SCH (10:08)
[2019-03-05] MEDS: Trospium 20 MG TAB PO SCH ×2 (10:09→20:34)
[2019-03-05] MEDS: Polyethylene Glycol 3350 17 GM Packet PO SCH (10:13)
--- NOTE | 2019-03-05 10:57 | PDOC.PN ---
- Subjective Encounter Start Date: 03/05/19 Encounter Start Time: 10:54 Subjective: abd pain, distention resolved - Objective MAR Reviewed: Yes Vital Signs & Weight: Vital Signs (12 hours) Temp Pulse Resp BP Pulse Ox 03/05/19 10:06 84 03/05/19 08:44 97.4 F L 84 14 137/85 97 03/05/19 04:49 98.1 F 86 16 120/71 96 03/04/19 23:45 97.9 F 101 H 16 143/80 H 98 Weight Weight 190 lb I&O: 03/04/19 03/05/19 03/06/19 06:59 06:59 06:59 Intake Total 1500 1979 Output Total 2200 1500 Balance -700 479 Result Diagrams: 03/01/19 06:57 03/01/19 06:57 Phys Exam - Physical Examination Neck: no JVD Respiratory: clear to auscultation bilateral Cardiovascular: RRR, no significant murmur Gastrointestinal: soft, non-tender, no distention, positive bowel sounds Musculoskeletal: no edema Dx/Plan (1) Abdominal pain Code(s): R10.9 - UNSPECIFIED ABDOMINAL PAIN Status: Resolved (2) Ileus, unspecified Code(s): K56.7 - ILEUS, UNSPECIFIED Status: Resolved (3) Paraplegia Code(s): G82.20 - PARAPLEGIA, UNSPECIFIED Status: Acute (4) Neurogenic bladder Code(s): N31.9 - NEUROMUSCULAR DYSFUNCTION OF BLADDER, UNSPECIFIED Status: Acute (5) Post-operative state Code(s): Z98.890 - OTHER SPECIFIED POSTPROCEDURAL STATES Status: Acute - Plan GI complaints resolved, will follow -: disposition per NS * .
[2019-03-05] MEDS: Rivaroxaban 10 MG TAB PO SCH (17:14)
[2019-03-06] MEDS: Bisacodyl 10 MG SUPP PR SCH ×3 (03:22→18:19)
[2019-03-06] MEDS: Sodium Chloride 0.9% 1,000 ML IV SCH (06:16)
--- NOTE | 2019-03-06 07:28 | PRG ---
DATE OF SERVICE: 03/06/2019 Mr. Madison is a 49-year-old male with history of cord injury. He is 11 days out from a decompressive laminectomy and extension of his thoracic lumbar fusion. Mr. Madison is resting comfortably in his hospital bed. Doppler ultrasound was performed yesterday which is negative. No sign of DVT. His incision is healing well. There are no recorded events last night. Our plan is to discharge him to rehab once placement has been arranged. Job ID: [id number] [facility]
[2019-03-06] MEDS: Gabapentin 300 MG CAP PO SCH ×3 (08:36→20:13)
[2019-03-06] MEDS: Senokot 8.6 MG TAB PO SCH (08:37)
[2019-03-06] MEDS: Docusate 100 MG CAP PO SCH (08:37)
[2019-03-06] MEDS: Labetalol 100 MG TAB PO SCH ×2 (08:37→20:13)
[2019-03-06] MEDS: Polyethylene Glycol 3350 17 GM Packet PO SCH (08:38)
[2019-03-06] MEDS: Trospium 20 MG TAB PO SCH ×2 (08:38→20:13)
[2019-03-06] MEDS: Citalopram 20 MG TAB PO SCH (08:38)
--- NOTE | 2019-03-06 14:08 | PDOC.PN ---
- Subjective Encounter Start Date: 03/06/19 Encounter Start Time: 14:04 Subjective: doing well, minimal abd discomfort, having BMs - Objective MAR Reviewed: Yes Vital Signs & Weight: Vital Signs (12 hours) Temp Pulse Resp BP BP Pulse Ox 03/06/19 11:36 98.0 F 78 18 135/76 97 03/06/19 08:37 78 113/69 03/06/19 08:00 98 03/06/19 03:35 98.4 F 83 18 108/69 97 Weight Weight 190 lb I&O: 03/05/19 03/06/19 03/07/19 06:59 06:59 06:59 Intake Total 1979 3585 Output Total 1500 4900 Balance 479 -1315 Result Diagrams: 03/01/19 06:57 03/01/19 06:57 Phys Exam - Physical Examination Neck: no JVD Respiratory: clear to auscultation bilateral Cardiovascular: RRR, no significant murmur Gastrointestinal: soft, non-tender, no distention, positive bowel sounds Musculoskeletal: edema present trace Dx/Plan (1) Abdominal pain Code(s): R10.9 - UNSPECIFIED ABDOMINAL PAIN Status: Resolved (2) Ileus, unspecified Code(s): K56.7 - ILEUS, UNSPECIFIED Status: Resolved (3) Paraplegia Code(s): G82.20 - PARAPLEGIA, UNSPECIFIED Status: Acute (4) Neurogenic bladder Code(s): N31.9 - NEUROMUSCULAR DYSFUNCTION OF BLADDER, UNSPECIFIED Status: Acute (5) Post-operative state Code(s): Z98.890 - OTHER SPECIFIED POSTPROCEDURAL STATES Status: Acute - Plan doing well, rehab pending -: cont current meds * .
[2019-03-06] MEDS: Rivaroxaban 10 MG TAB PO SCH (16:31)
[2019-03-07] MEDS: Bisacodyl 10 MG SUPP PR SCH ×3 (00:12→17:39)
[2019-03-07] MEDS: Labetalol 100 MG TAB PO SCH ×2 (09:05→20:15)
[2019-03-07] MEDS: Gabapentin 300 MG CAP PO SCH ×3 (09:06→20:14)
[2019-03-07] MEDS: Trospium 20 MG TAB PO SCH ×2 (09:06→20:14)
[2019-03-07] MEDS: Docusate 100 MG CAP PO SCH (09:06)
[2019-03-07] MEDS: Senokot 8.6 MG TAB PO SCH (09:06)
[2019-03-07] MEDS: Citalopram 20 MG TAB PO SCH (09:06)
[2019-03-07] MEDS: Polyethylene Glycol 3350 17 GM Packet PO SCH (09:07)
--- NOTE | 2019-03-07 09:10 | PRG ---
DATE OF SERVICE: 03/07/2019 Mr. Madison is 12 days out from a redo thoracic and lumbar fusion, extension of hardware. There were no recorded events last night. He is resting in his hospital bed. He worked with physical therapy and his to transition out of bed and into bathroom, using wheelchair effectively. The patient states that he still feels weaker than he should be to be going home and would like to go to rehab. His incision is healing well. No recorded events. No fever. Once rehab has been arranged, he can be discharged Job ID: [id number] [facility]
--- NOTE | 2019-03-07 12:51 | PDOC.PN ---
- Subjective Encounter Start Date: 03/07/19 Encounter Start Time: 12:50 Subjective: no fever, pain, nausea - Objective Vital Signs & Weight: Vital Signs (12 hours) Temp Pulse Resp BP BP Pulse Ox 03/07/19 12:00 98.1 F 96 16 125/87 97 03/07/19 11:48 98 F 93 18 129/88 96 03/07/19 09:05 85 126/81 03/07/19 08:35 96 03/07/19 07:26 97.4 F L 85 16 126/81 96 03/07/19 03:16 97.8 F 93 18 118/80 97 Weight Admit Weight 190 lb Weight 190 lb I&O: 03/06/19 03/07/19 03/08/19 06:59 06:59 06:59 Intake Total 3585 510 Output Total 4900 3400 Balance -4335 -2640 Result Diagrams: 03/01/19 06:57 03/01/19 06:57 Phys Exam - Physical Examination Neck: no JVD Respiratory: clear to auscultation bilateral Cardiovascular: RRR, no significant murmur Gastrointestinal: soft, no distention Musculoskeletal: no edema paraplegia Dx/Plan (1) Abdominal pain Code(s): R10.9 - UNSPECIFIED ABDOMINAL PAIN Status: Resolved (2) Ileus, unspecified Code(s): K56.7 - ILEUS, UNSPECIFIED Status: Resolved (3) Paraplegia Code(s): G82.20 - PARAPLEGIA, UNSPECIFIED Status: Acute (4) Neurogenic bladder Code(s): N31.9 - NEUROMUSCULAR DYSFUNCTION OF BLADDER, UNSPECIFIED Status: Acute (5) Post-operative state Code(s): Z98.890 - OTHER SPECIFIED POSTPROCEDURAL STATES Status: Acute - Plan doing well -: REHAB pending * .
[2019-03-07] MEDS: Rivaroxaban 10 MG TAB PO SCH (17:18)
[2019-03-07] MEDS: Acetaminophen/Codeine 30-300mg Tablet PO PRN (17:20)
[2019-03-08] MEDS: Bisacodyl 10 MG SUPP PR SCH ×3 (01:42→18:29)
[2019-03-08 08:23] LABS: Bacteria/HPF None Seen HPF (None Seen); Bilirubin Negative (Negative); Blood, Urine 3+ (Negative); Clarity Turbid (Clear); Glucose, Urine (Dipstick) Normal (Negative); Leukocyte 500 Leu/uL (Negative); Nitrite Negative (Negative); Protein, Urine (Dipstick) 50 mg/dL (Neg-Trace); RBC/HPF Greater than 50 HPF (0-3); Squamous Epithelial None Seen HPF (0-3); Urobilinogen Normal mg/dL (Less than 2); WBC/HPF Greater than 50 HPF (0-3)
[2019-03-08] MEDS: Docusate 100 MG CAP PO SCH (09:39)
[2019-03-08] MEDS: Trospium 20 MG TAB PO SCH ×2 (09:39→21:53)
[2019-03-08] MEDS: Gabapentin 300 MG CAP PO SCH ×3 (09:39→21:53)
[2019-03-08] MEDS: Citalopram 20 MG TAB PO SCH (09:40)
[2019-03-08] MEDS: Senokot 8.6 MG TAB PO SCH (09:40)
[2019-03-08] MEDS: Polyethylene Glycol 3350 17 GM Packet PO SCH (09:40)
[2019-03-08] MEDS: Labetalol 100 MG TAB PO SCH ×2 (09:40→21:53)
--- NOTE | 2019-03-08 11:20 | PDOC.PN ---
- Subjective Encounter Start Date: 03/08/19 Encounter Start Time: 11:18 Subjective: only CO is joint,neck pain - Objective Vital Signs & Weight: Vital Signs (12 hours) Temp Pulse Resp BP BP Pulse Ox 03/08/19 09:40 100 144/93 H 03/08/19 07:50 98.1 F 100 18 144/93 H 99 03/08/19 07:40 99 03/08/19 04:21 98.3 F 89 16 119/72 97 03/08/19 00:00 98.3 F 96 16 160/80 H 95 Weight Admit Weight 190 lb Weight 190 lb I&O: 03/07/19 03/08/19 03/09/19 06:59 06:59 06:59 Intake Total 510 1730 437 Output Total 3400 2400 Balance -2890 -670 437 Result Diagrams: 03/01/19 06:57 03/01/19 06:57 Phys Exam - Physical Examination Neck: no JVD Respiratory: clear to auscultation bilateral Cardiovascular: RRR, no significant murmur Gastrointestinal: soft, non-tender Musculoskeletal: no edema paraplegia Dx/Plan (1) Abdominal pain Code(s): R10.9 - UNSPECIFIED ABDOMINAL PAIN Status: Resolved (2) Ileus, unspecified Code(s): K56.7 - ILEUS, UNSPECIFIED Status: Resolved (3) Paraplegia Code(s): G82.20 - PARAPLEGIA, UNSPECIFIED Status: Acute (4) Neurogenic bladder Code(s): N31.9 - NEUROMUSCULAR DYSFUNCTION OF BLADDER, UNSPECIFIED Status: Acute (5) Post-operative state Code(s): Z98.890 - OTHER SPECIFIED POSTPROCEDURAL STATES Status: Acute - Plan Rehab pending -: cont labetolol, gabapentin -: naprosyn for joint pains -: PT/OT * .
--- NOTE | 2019-03-08 17:56 | PRG ---
DATE OF SERVICE: 03/08/2019 Mr. Madison is 13 days out from redo decompressive laminectomy infusion following a fracture. I saw him this morning, There were no recorded events last night. He is resting comfortably when I see him. T-max was 98.3, blood pressure [id number]. Mr. Madison is waiting to go to rehab once approval and placement have been arranged. He can discharge at any time. Job ID: [id number] [facility]
[2019-03-08] MEDS: Naproxen 500 MG TAB PO SCH (21:53)
[2019-03-08] MEDS: tiZANidine HCl 4 MG TAB PO PRN (21:54)
[2019-03-09] MEDS: Bisacodyl 10 MG SUPP PR SCH ×2 (02:03→14:50)
[2019-03-09] MEDS ORDERED: Sulfameth/Trimethoprim DS 800-160mg TAB PO SCH (09:00)
[2019-03-09] MEDS: Polyethylene Glycol 3350 17 GM Packet PO SCH (10:06)
[2019-03-09] MEDS: Senokot 8.6 MG TAB PO SCH (10:06)
[2019-03-09] MEDS: Labetalol 100 MG TAB PO SCH (10:07)
[2019-03-09] MEDS: Citalopram 20 MG TAB PO SCH (10:07)
[2019-03-09] MEDS: Trospium 20 MG TAB PO SCH (10:07)
[2019-03-09] MEDS: Naproxen 500 MG TAB PO SCH (10:07)
[2019-03-09] MEDS: Gabapentin 300 MG CAP PO SCH ×2 (10:08→15:35)
[2019-03-09] MEDS: Docusate 100 MG CAP PO SCH (10:10)
--- NOTE | 2019-03-09 11:54 | PRG ---
DATE OF SERVICE: 03/09/2019 Mr. Madison is 14 days out from redo laminectomy/fusion for kyphosis. Mr. Madison is resting comfortably. He is hoping to have a bowel movement today, has some signs of UTI, which we will treat. He is pending rehab. There were no events recorded last night. Once rehab has been arranged, he can discharge at anytime. Job ID: [id number] [facility]
[2019-03-09 11:56] VITALS: BP 132/86; TEMP 97.9
--- NOTE | 2019-03-09 14:01 | PDOC.PN ---
- Subjective Encounter Start Date: 03/09/19 Encounter Start Time: 14:00 Subjective: feels well. wants to go home -: having small BMs .no abd pain/diarrhea - Objective MAR Reviewed: Yes Vital Signs & Weight: Vital Signs (12 hours) Temp Pulse Resp BP Pulse Ox 03/09/19 11:49 97.9 F 93 16 132/86 96 03/09/19 07:44 97.6 F 79 16 120/78 97 Weight Admit Weight 190 lb Weight 190 lb I&O: 03/08/19 03/09/19 03/10/19 06:59 06:59 06:59 Intake Total 1730 1774 Output Total 2400 2330 Balance -304 -607 Result Diagrams: 03/01/19 06:57 03/01/19 06:57 Phys Exam - Physical Examination Constitutional: NAD HEENT: PERRLA, moist MMs, sclera anicteric, oral pharynx no lesions Neck: no nodes, no JVD, supple, full ROM Respiratory: no wheezing, no rales, no rhonchi, clear to auscultation bilateral Cardiovascular: RRR, no significant murmur, no rub Gastrointestinal: soft, non-tender, no distention, positive bowel sounds Musculoskeletal: no edema, pulses present Neurological: non-focal, normal sensation, moves all 4 limbs Psychiatric: normal affect, A&O x 3 Skin: no rash Dx/Plan (1) Neurogenic bladder Code(s): N31.9 - NEUROMUSCULAR DYSFUNCTION OF BLADDER, UNSPECIFIED Status: Acute (2) Paraplegia Code(s): G82.20 - PARAPLEGIA, UNSPECIFIED Status: Acute (3) Post-operative state Code(s): Z98.890 - OTHER SPECIFIED POSTPROCEDURAL STATES Status: Acute (4) Ileus, unspecified Code(s): K56.7 - ILEUS, UNSPECIFIED Status: Resolved - Plan plan discussed w/ family OK to DC from IM team .no new recs.f/u w PCP * . Review of Systems - Review of Systems Constitutional: negative: fever, chills, sweats, weakness, malaise, other Respiratory: negative: Cough, Dry, Shortness of Breath, Hemoptysis, SOB with Excertion, Pleuritic Pain, Sputum, Wheezing Cardiovascular: negative: chest pain, palpitations, orthopnea, paroxysmal nocturnal dyspnea, edema, light headedness, other Gastrointestinal: Constipation. negative: Nausea, Vomiting, Abdominal Pain, Diarrhea, Melena, Hematochezia, Other Genitourinary: negative: Dysuria, Frequency, Incontinence, Hematuria, Retention , Other Musculoskeletal: negative: Neck Pain, Shoulder Pain, Arm Pain, Back Pain, Hand Pain, Leg Pain, Foot Pain, Other Neurological: negative: Weakness, Numbness, Incoordination, Change in Speech, Confusion, Seizures, Other - Medications/Allergies Allergies/Adverse Reactions: Allergies Allergy/AdvReac Type Severity Reaction Status Date / Time No Known Allergies Allergy Verified 12/06/18 08:57 Medications: Current Medications Acetaminophen (Tylenol) 650 mg PO Q4H PRN PRN Reason: Headache/Fever or Pain Last Admin: 03/05/19 06:25 Dose: 650 mg Acetaminophen/Codeine Phosphate (Tylenol #3) 1 tab PO Q3H PRN PRN Reason: Mild Pain (1-3) Last Admin: 02/25/19 15:19 Dose: 1 tab Acetaminophen/Codeine Phosphate (Tylenol #3) 2 tab PO Q3H PRN PRN Reason: Moderate Pain (4-6) Last Admin: 03/07/19 17:20 Dose: 2 tab Al Hydroxide/Mg Hydroxide (Maalox) 30 ml PO Q4H PRN PRN Reason: Indigestion Last Admin: 03/03/19 22:26 Dose: 30 ml Bisacodyl (Dulcolax) 10 mg IA Q12H PRN PRN Reason: Constipation Last Admin: 03/04/19 08:57 Dose: 10 mg Bisacodyl (Dulcolax) 10 mg IA Q8H [facility] Last Admin: 03/09/19 02:03 Dose: 10 mg Citalopram Hydrobromide (Celexa) 20 mg PO DAILY [facility] Last Admin: 03/09/19 10:07 Dose: 20 mg Diphenhydramine HCl (Benadryl) 25 mg IVP Q6H PRN PRN Reason: Itching Diphenhydramine HCl (Benadryl) 25 mg PO Q6H PRN PRN Reason: Itching Docusate Sodium (Colace) 100 mg PO DAILY [facility] Last Admin: 03/09/19 10:10 Dose: 100 mg Gabapentin (Neurontin) 600 mg PO TID [facility] Last Admin: 03/09/19 10:08 Dose: 600 mg Promethazine HCl 25 mg/ Sodium (Chloride) 51 mls @ 204 mls/hr IVPB Q6H PRN PRN Reason: Nausea/Vomiting Labetalol HCl (Normodyne) 50 mg PO BID [facility] Last Admin: 03/09/19 10:07 Dose: 50 mg Magnesium Hydroxide (Milk Of Magnesium) 30 ml PO Q12H PRN PRN Reason: Constipation Last Admin: 03/04/19 01:55 Dose: 30 ml Mirabegron (Myrbetriq Er) 50 mg PO DAILY [facility] Last Admin: 03/09/19 10:07 Dose: 50 mg Naproxen (Naprosyn) 500 mg PO BID [facility] Last Admin: 03/09/19 10:07 Dose: 500 mg Ondansetron HCl (Zofran) 4 mg IVP DAILYPRN PRN PRN Reason: Nausea Last Admin: 03/04/19 14:27 Dose: 4 mg Pantoprazole Sodium (Protonix) 40 mg PO DAILY [facility] Last Admin: 03/09/19 10:07 Dose: 40 mg Polyethylene Glycol (Miralax) 17 gm PO DAILY [facility] Last Admin: 03/09/19 10:06 Dose: 17 gm Promethazine HCl (Phenergan) 12.5 mg PO Q4H PRN PRN Reason: Nausea/Vomiting Last Admin: 03/09/19 02:03 Dose: 12.5 mg Promethazine HCl (Phenergan) 12.5 mg IM Q4H PRN PRN Reason: Nausea/Vomiting Last Admin: 03/04/19 11:27 Dose: 12.5 mg Senna (Senokot) 3 tab PO DAILY [facility] Last Admin: 03/09/19 10:06 Dose: 3 tab Sodium Chloride (Flush - Normal Saline) 10 ml IVF Q12HR [facility] Last Admin: 03/08/19 21:53 Dose: 10 ml Sodium Chloride (Flush - Normal Saline) 10 ml IVF PRN PRN PRN Reason: Saline Flush Tizanidine HCl (Zanaflex) 4 mg PO Q6H PRN PRN Reason: Muscle Spasm Last Admin: 03/08/19 21:54 Dose: 4 mg Tramadol HCl (Ultram) 50 mg PO Q6H PRN PRN Reason: Mild Pain (1-3) Last Admin: 02/26/19 17:07 Dose: 50 mg Tramadol HCl (Ultram) 100 mg PO Q6H PRN PRN Reason: Moderate Pain (4-6) Last Admin: 03/03/19 20:54 Dose: 100 mg Trimethoprim/Sulfamethoxazole (Bactrim Ds) 1 tab PO BID [facility] Stop: 03/16/19 09:01 Last Admin: 03/09/19 10:08 Dose: 1 tab Trospium (Trospium) 20 mg PO BID [facility] Last Admin: 03/09/19 10:07 Dose: 20 mg
[2019-03-09] MEDS: Acetaminophen/Codeine 30-300mg Tablet PO PRN (15:36)
== END 2019-03-09 15:45 | DRG 457 ==
LOC: SURG A 05:30 → SURG B 15:55
PROVIDERS: ADMIT Neurological Surgery; ATTEND Neurological Surgery
PROC: 0RG7071 Fusion of 2 to 7 Thoracic Vertebral Joints with Autologous Tissue Substitute, Posterior Approach, Posterior Column, Open Approach (ICD-10-PCS; principal; 2019-02-23)
PROC: 0SG1071 Fusion of 2 or more Lumbar Vertebral Joints with Autologous Tissue Substitute, Posterior Approach, Posterior Column, Open Approach (ICD-10-PCS; 2019-02-23)
PROC: 0RGA071 Fusion of Thoracolumbar Vertebral Joint with Autologous Tissue Substitute, Posterior Approach, Posterior Column, Open Approach (ICD-10-PCS; 2019-02-23)
PROC: 0RP604Z Removal of Internal Fixation Device from Thoracic Vertebral Joint, Open Approach (ICD-10-PCS; 2019-02-23)
DX: S22.072 Unstable burst fracture of T9-T10 vertebra (principal); K56.7 Ileus, unspecified; G82.21 Paraplegia, complete; G95.9 Disease of spinal cord, unspecified; N31.9 Neuromuscular dysfunction of bladder, unspecified; K59.00 Constipation, unspecified; Z98.1 Arthrodesis status
CPT/HCPCS: 36415; 74018; 76000; 80048; 81001; 85014; 85018; 85025; 85610; 85730; 86850; 86900; 86901; 93970; C1713; C1768; J0131; J0670; J0690; J1100; J1885; J2001; J2270; J2370; J2405; J2550; J2704; J3010; J3370; J3490; P9045; Q0169; S0028

== ENCOUNTER 2019-05-17 09:17 | Outpatient (CLI) | payer OTHER ==
--- NOTE | 2019-05-17 09:56 | RAD ---
2 views of the lumbar spine: 05/17/2019 COMPARISON: 12/07/2018 HISTORY: Spinal cord injury, surgery FINDINGS: No anterolisthesis or retrolisthesis is seen within the lumbar spine. There is extensive postoperative hardware present. Hardware includes bilateral pedicle screws within the lower thoracic spine and upper lumbar spine with horizontal and vertically oriented interlocking rods. The hardware has been extended since 12/07/2018 examination to include the upper daniela mbar spine. Alignment appears normal on lateral imaging with no significant anterolisthesis or retrolisthesis. No evidence for hardware failure. Superiormost aspect of the postoperative hardware w ithin the lumbar spine is not visualized on this exam. Torsion: Postoperative hardware as above.
--- NOTE | 2019-05-17 10:25 | RAD ---
THORACIC SPINE FRONTAL AND LATERAL IMAGIN05/17/2019 HISTORY: Evaluate thoracic spine following surgery. COMPARISON: 10/31/2018 FINDINGS: Prior examination demonstrated exaggerated thoracic kyphosis at the thoracolumbar junction, which is no longer present, following placement of posterior fusion hardware involving the lower thoracic and upper lumbar spine. On this examination alignment is normal. IMPRESSION: Extensive postoperative fusion hardware at the lower thoracic spine and upper lumbar spine, treating the previously noted exaggerated thoracolumbar kyphosis. This kyphosis is no longer present. Transcribed Date/Time: 05/17/2019 1:17 PM
== END 2019-05-17 09:18 | disposition home or self-care (01) ==
LOC: TBSIIMAG 09:17
PROVIDERS: ATTEND Neurological Surgery
DX: T84.498A Other mechanical complication of other internal orthopedic devices, implants and grafts, initial encounter (principal); M54.5 Low back pain
CPT/HCPCS: 72070; 72100